=== PATIENT | female | born 1985 | race Caucasian/White ===

== ENCOUNTER → 2019-11-09 | Outpatient (REF) | payer BC ==
[2019-11-09 18:26] LABS: MALB URINE SIEMENS 55.7 MG/L
[2019-11-09 19:09] LABS: BASO % 0.5 % (0.0-1.0); EOS # 0.1 10^3/uL (0.0-0.5); EOS % 1.2 % (0.0-3.0); HEMATOCRIT 39.8 % (36.0-47.0); HEMOGLOBIN 13.4 g/dl (12.0-15.5); LYMPH # 2.6 10^3/uL (1.5-5.0); LYMPH % 30.4 % (24.0-44.0); MEAN CORPUSCULAR HEMOGLOBIN 29.7 pg (27.0-33.0); MEAN CORPUSCULAR HGB CONC 33.7 g/dl (32.0-36.5); MEAN CORPUSCULAR VOLUME 88.2 fl (80.0-96.0); MONO # 0.6 10^3/uL (0.0-0.8); MONO % 7.3 % (0.0-5.0); NEUTROPHILS # 5.2 10^3/uL (1.5-8.5); NEUTROPHILS % 60.4 % (36.0-66.0); PLATELET COUNT, AUTOMATED 302 10^3/uL (150-450); RED BLOOD COUNT 4.51 10^6/uL (4.00-5.40); WHITE BLOOD COUNT 8.6 10^3/uL (4.0-10.0)
[2019-11-09 19:23] LABS: ALT/SGPT 24 U/L (12-78); BLOOD UREA NITROGEN 13 MG/DL (7-18); CALCIUM LEVEL 8.9 MG/DL (8.5-10.1); CARBON DIOXIDE LEVEL 29 MEQ/L (21-32); CHLORIDE LEVEL 102 MEQ/L (98-107); CHOLESTEROL LEVEL 216 MG/DL (<200); CREATININE FOR GFR 0.76 MG/DL (0.55-1.30); FREE T4 1.52 NG/DL (0.76-1.46); GLOMERULAR FILTRATION RATE > 60.0 (>60); GLUCOSE, FASTING 288 MG/DL (70-100); HDL CHOLESTEROL 36 MG/DL (>40); LDL CHOLESTEROL 150 MG/DL (<100); NON-HDL-C 180 MG/DL; POTASSIUM SERUM 4.1 MEQ/L (3.5-5.1); SODIUM LEVEL 137 MEQ/L (136-145); TOTAL PROTEIN 8.5 GM/DL (6.4-8.2); TRIGLYCERIDES LEVEL 149 MG/DL (<150)
[2019-11-09 19:24] LABS: TOTAL 25(OH) VITAMIN D 20.8 NG/ML (30.0-100.0)
[2019-11-09 19:45] LABS: HEMOGLOBIN A1c 12.4 %
== END ==
LOC: M LAB REF 13:05
PROVIDERS: ATTEND Physician Assistant
DX: Z00.00 Encounter for general adult medical examination without abnormal findings (principal); E11.9 Type 2 diabetes mellitus without complications; E66.09 Other obesity due to excess calories; J45.20 Mild intermittent asthma, uncomplicated; Z13.220 Encounter for screening for lipoid disorders; E03.2 Hypothyroidism due to medicaments and other exogenous substances; Z68.35 Body mass index [BMI] 35.0-35.9, adult

== ENCOUNTER → 2020-02-07 | Outpatient (REF) | payer BC ==
[2020-02-07 17:12] LABS: HEMATOCRIT 41.5 % (36.0-47.0); HEMOGLOBIN 13.2 g/dl (12.0-15.5); MEAN CORPUSCULAR HEMOGLOBIN 27.2 pg (27.0-33.0); MEAN CORPUSCULAR HGB CONC 31.8 g/dl (32.0-36.5); MEAN CORPUSCULAR VOLUME 85.4 fl (80.0-96.0); PLATELET COUNT, AUTOMATED 339 10^3/uL (150-450); RED BLOOD COUNT 4.86 10^6/uL (4.00-5.40); WHITE BLOOD COUNT 10.6 10^3/uL (4.0-10.0)
[2020-02-07 17:20] LABS: ALBUMIN 3.6 GM/DL (3.2-5.2); ALT/SGPT 27 U/L (12-78); BILIRUBIN,TOTAL 0.5 MG/DL (0.2-1.0); BLOOD UREA NITROGEN 14 MG/DL (7-18); CALCIUM LEVEL 8.8 MG/DL (8.5-10.1); CARBON DIOXIDE LEVEL 29 MEQ/L (21-32); CHLORIDE LEVEL 102 MEQ/L (98-107); CHOLESTEROL LEVEL 180 MG/DL (<200); CREATININE FOR GFR 0.61 MG/DL (0.55-1.30); GLOMERULAR FILTRATION RATE > 60.0 (>60); GLUCOSE, FASTING 278 MG/DL (70-100); HDL CHOLESTEROL 41 MG/DL (>40); LDL CHOLESTEROL 114 MG/DL (<100); NON-HDL-C 139 MG/DL; SODIUM LEVEL 136 MEQ/L (136-145); THYROID STIMULATING HORMONE 0.845 uIU/ML (0.358-3.740); TOTAL PROTEIN 7.7 GM/DL (6.4-8.2); TRIGLYCERIDES LEVEL 125 MG/DL (<150)
[2020-02-07 17:40] LABS: HEMOGLOBIN A1c 11.1 %
== END ==
LOC: M LAB REF 16:33
PROVIDERS: ATTEND Physician Assistant
DX: E11.65 Type 2 diabetes mellitus with hyperglycemia (principal)

== ENCOUNTER → 2020-08-01 | Outpatient (REF) | payer BC ==
[2020-08-01 17:58] LABS: HEMATOCRIT 44.6 % (36.0-47.0); HEMOGLOBIN 14.2 g/dl (12.0-15.5); MEAN CORPUSCULAR HEMOGLOBIN 26.9 pg (27.0-33.0); MEAN CORPUSCULAR HGB CONC 31.8 g/dl (32.0-36.5); MEAN CORPUSCULAR VOLUME 84.5 fl (80.0-96.0); PLATELET COUNT, AUTOMATED 369 10^3/uL (150-450); RED BLOOD COUNT 5.28 10^6/uL (4.00-5.40); WHITE BLOOD COUNT 10.9 10^3/uL (4.0-10.0)
[2020-08-01 18:26] LABS: CREATININE, URINE 96.7 MG/DL; MALB URINE SIEMENS 12.3 MG/L; MAU/CREAT RATIO 12.7 MCG/MG (0.0-30.0)
[2020-08-01 18:27] LABS: ALBUMIN 3.6 GM/DL (3.2-5.2); ALT/SGPT 32 U/L (12-78); BILIRUBIN,TOTAL 0.5 MG/DL (0.2-1.0); BLOOD UREA NITROGEN 9 MG/DL (7-18); CALCIUM LEVEL 9.4 MG/DL (8.5-10.1); CARBON DIOXIDE LEVEL 28 MEQ/L (21-32); CHLORIDE LEVEL 98 MEQ/L (98-107); CHOLESTEROL LEVEL 199 MG/DL (<200); CREATININE FOR GFR 0.55 MG/DL (0.55-1.30); GLOMERULAR FILTRATION RATE > 60.0 (>60); GLUCOSE, FASTING 317 MG/DL (70-100); HDL CHOLESTEROL 33 MG/DL (>40); LDL CHOLESTEROL 127 MG/DL (<100); NON-HDL-C 166 MG/DL; POTASSIUM SERUM 4.2 MEQ/L (3.5-5.1); SODIUM LEVEL 134 MEQ/L (136-145); THYROID STIMULATING HORMONE 0.114 uIU/ML (0.358-3.740); TOTAL PROTEIN 8.2 GM/DL (6.4-8.2); TRIGLYCERIDES LEVEL 193 MG/DL (<150)
[2020-08-01 18:58] LABS: HEMOGLOBIN A1c 12.1 %
== END ==
LOC: M LAB REF 16:20
PROVIDERS: ATTEND Physician Assistant
DX: E11.65 Type 2 diabetes mellitus with hyperglycemia (principal); E89.0 Postprocedural hypothyroidism

== ENCOUNTER → 2020-12-18 | Outpatient (CLI) | payer BC ==
--- NOTE | 2020-12-18 15:46 | REP ---
INDICATION: EPIGASTRIC PAIN COMPARISON: None. TECHNIQUE: Real time fernandez scale ultrasound examination using curved array transducer. FINDINGS: Liver and pancreas are normal in contour, size, and echogenicity without focal hepatic or pancreatic lesions identified. The gallbladder demonstrates mobile gallstones without wall thickening, or pericholecystic fluid. No biliary ductal dilatation is appreciated and the common bile duct measures 5.5 mm diameter. Right kidney is normal in reniform shape without hydronephrosis and measures 12.7 x 6.8 x 5.7 cm. No ascites in the visualized right upper quadrant. IMPRESSION: Cholelithiasis <Electronically signed by Tank Smalls > 12/18/20 [id number]
== END ==
LOC: M RAD 09:08
PROVIDERS: ATTEND Physician Assistant
DX: K81.9 Cholecystitis, unspecified (principal); R10.13 Epigastric pain

== ENCOUNTER → 2021-02-13 | Outpatient (CLI) | payer BC ==
[~2021-02-13] MED LIST: GLIP5TAB20 PO; LEXA1TAB2 PO; PROAAER10 INH; SYNT175T2 PO
[2021-02-13 12:10] LABS: HEMATOCRIT 41.3 % (36.0-47.0); HEMOGLOBIN 13.4 g/dl (12.0-15.5); MEAN CORPUSCULAR HEMOGLOBIN 27.4 pg (27.0-33.0); MEAN CORPUSCULAR HGB CONC 32.4 g/dl (32.0-36.5); MEAN CORPUSCULAR VOLUME 84.5 fl (80.0-96.0); PLATELET COUNT, AUTOMATED 384 10^3/uL (150-450); RED BLOOD COUNT 4.89 10^6/uL (4.00-5.40); WHITE BLOOD COUNT 14.4 10^3/uL (4.0-10.0)
[2021-02-13 12:39] LABS: BLOOD UREA NITROGEN 10 MG/DL (7-18); CALCIUM LEVEL 9.5 MG/DL (8.5-10.1); CARBON DIOXIDE LEVEL 29 MEQ/L (21-32); CHLORIDE LEVEL 101 MEQ/L (98-107); CREATININE FOR GFR 0.56 MG/DL (0.55-1.30); GLOMERULAR FILTRATION RATE > 60.0 (>60); GLUCOSE, FASTING 218 MG/DL (70-100); POTASSIUM SERUM 4.4 MEQ/L (3.5-5.1); SODIUM LEVEL 136 MEQ/L (136-145)
== END ==
LOC: M WUC 09:27
PROVIDERS: ATTEND Physician Assistant
DX: E11.65 Type 2 diabetes mellitus with hyperglycemia (principal); E89.0 Postprocedural hypothyroidism

== ENCOUNTER → 2021-02-21 | Outpatient (CLI) | payer BC | LOC: M LABSMTC 09:12 | PROVIDERS: ATTEND Anesthesiology | DX: Z01.812 Encounter for preprocedural laboratory examination (principal); Z20.822 Contact with and (suspected) exposure to COVID-19 ==

== ENCOUNTER 2021-02-26 06:15 | Day surgery (SDC) | payer BC ==
[~2021-02-26] VITALS: Ht 165.1 cm; Wt 95.7 kg
[~2021-02-26 06:15] MED LIST changes: +LR 1,000 ML IV ONE
[2021-02-26] MEDS ORDERED: BUPIVACAINE HCL 0.25% 30ML VIAL As Ordered ONE (07:11)
[2021-02-26] MEDS ORDERED: HumaLOG INSULIN (NovoLOG) PER UNIT SC ONE ×2 (07:25→09:35)
[2021-02-26] MEDS ORDERED: fentaNYL 100 MCG/2 ML INJECTION (J3010) As Ordered ONE (07:54)
[2021-02-26] MEDS ORDERED: MIDAZOLAM INJ 2MG/2ML VIAL (J2250 PER 1MG) As Ordered ONE (07:54)
[2021-02-26] MEDS ORDERED: LIDOCAINE 2% 100MG/5ML SDV (FOR ANES.) As Ordered ONE (07:54)
[2021-02-26] MEDS ORDERED: ROCURONIUM BROMIDE 50 MG/5 ML VIAL As Ordered ONE ×2 (07:54→08:20)
[2021-02-26] MEDS ORDERED: propofoL 200 MG/20 ML VIAL As Ordered ONE (07:54)
[2021-02-26] MEDS ORDERED: ONDANSETRON 4MG/2ML VIAL As Ordered ONE (07:54)
[2021-02-26] MEDS ORDERED: dexameTHASONE 4 MG/ML 1ML VIAL (J1100 PER 1MG) As Ordered ONE (07:54)
[2021-02-26] MEDS ORDERED: ACETAMINOPHEN 1000MG 100ML IV BTL (OFIRMEV) (J0131 PER 10MG) As Ordered ONE (07:55)
[2021-02-26] MEDS ORDERED: HYDROmorphone HCL 2 MG/ML 1ML VIAL As Ordered ONE (07:55)
[2021-02-26] MEDS ORDERED: SUGAMMADEX SODIUM 500 MG/5 ML VIAL (BRIDION) As Ordered ONE (08:21)
[2021-02-26] MEDS ORDERED: fentaNYL 100 MCG/2 ML INJECTION (J3010) IV PRN (09:35)
[2021-02-26] MEDS ORDERED: ONDANSETRON 4MG/2ML VIAL IV PRN (09:35)
[2021-02-26] MEDS ORDERED: LR 1,000 ML IV SCH (09:35)
[2021-02-26] MEDS ORDERED: oxyCODONE 5MG TAB PO PRN (09:35)
[2021-02-26] MEDS ORDERED: IBUPROFEN 600MG TAB PO PRN (09:40)
[2021-02-26] MEDS ORDERED: NORCO, ANEXSIA 5/325MG TABLET (HYDROcodone/ACETAMINOPHEN) PO PRN (09:40)
[2021-02-26] MEDS ORDERED: ACETAMINOPHEN TAB 650MG DOSE (2X325MG) PO PRN (09:40)
[2021-02-26] MEDS ORDERED: KETOROLAC 30 MG/ML 1ML VIAL As Ordered ONE (09:56)
[2021-02-26] MEDS ORDERED: KETOROLAC 30 MG/ML 1ML VIAL IV ONE (10:00)
[2021-02-26] MEDS ORDERED: HYDR-3715 PO (10:13)
--- NOTE | 2021-02-26 10:49 | RO ---
OPERATIVE NOTE DATE OF OPERATION: 02/26/2021 PREOPERATIVE DIAGNOSIS: Symptomatic gallstones. POSTOPERATIVE DIAGNOSIS: Symptomatic gallstones. PROCEDURE: Robotic-assisted laparoscopic cholecystectomy. SURGEON: ADRIANA NARAYANAN MD DISTRICT ADMINISTRATOR: SHERRIE FOWLER. Mariola's assistance was essential for management of the [employer] robotic equipment. She assisted with placement of the ports and insertion and change of instruments. She assisted in closure of the incisions as well. ANESTHESIA: General. INDICATIONS FOR THE PROCEDURE: The patient is a 35-year-old woman with a history of intermittent upper abdominal pain with findings of cholelithiasis. She is now for a robotic-assisted laparoscopic cholecystectomy. DESCRIPTION OF PROCEDURE: The patient was brought to the operating room and placed on the table in the supine position. She was placed under general endotracheal anesthesia. The patient's abdomen was prepped and draped in a sterile fashion. TEDs and sequentials were utilized; 0.25% Marcaine was infiltrated at the trocar sites as needed. A short transverse incision was made in the left upper quadrant and a Veress needle was inserted. The abdomen was inflated with CO2 gas without difficulty. An 8 mm robotic port was placed over the scope and through the abdominal wall without difficulty. Initial examination showed a normal appearing liver. The gallbladder was hidden beneath the omentum. The patient was tilted to a slight reverse Trendelenburg position and rolled slightly to the left. Three additional 8 mm ports were placed just above the umbilicus, in the medial right lower quadrant, and in the lateral right lower quadrant. The patient cart with the [employer] robot was then brought into position. The endoscope arm was docked to the supraumbilical port. The endoscope was inserted and targeting took place on the subhepatic space. A hook cautery was placed in the left upper quadrant and a grasping retractor and fenestrated bipolar were placed in the right lower quadrant ports. I then moved to the control console to proceed with the operation. The edge of the liver was elevated and the gallbladder was identified. The gallbladder was somewhat thick-walled but not acutely inflamed and not tensely distended. The gallbladder was grasped and elevated. A few adhesions of the omentum toward the neck of the gallbladder were lysed with the cautery. The pericholecystic tissues at the gallbladder neck were then opened carefully using the hook cautery. The cholecystic artery and cystic ducts were then both clearly identified and dissected free. Both structures were then doubly clipped with hemoclips and divided. The gallbladder was then dissected free from the gallbladder bed using the cauterizing scissors. A small artery in the gallbladder bed was identified and this was thoroughly cauterized. The gallbladder was not perforated in the course of dissection. The gallbladder was placed in an Endopouch. Final inspection in the subhepatic space showed no evidence of bleeding or bile leak. The robotic instruments were then removed and the patient cart was undocked and withdrawn. I returned to the patient's side. The specimen pouch was retrieved through the supraumbilical site which required extending the skin and fascial incisions slightly. There was one somewhat lobulated, approximately 1.5 cm stone palpable in the gallbladder. The specimen was sent for permanent pathology. The fascia was closed with a running suture of 2-0 PDS. The skin incisions were all closed with buried sutures of 4-0 Vicryl and Steri-Strips. Light dressings were applied. The patient tolerated the procedure well without apparent complication. She was awakened in the operating room, extubated and moved to the recovery room in table condition.
[2021-02-26 11:15] VITALS: BP 126/65
== END 2021-02-26 11:15 | disposition home or self-care (01) ==
LOC: M SDC 06:15
PROVIDERS: ATTEND Surgery
DX: K80.10 Calculus of gallbladder with chronic cholecystitis without obstruction (principal); E11.9 Type 2 diabetes mellitus without complications; E03.9 Hypothyroidism, unspecified; F41.9 Anxiety disorder, unspecified; J45.909 Unspecified asthma, uncomplicated; Z79.51 Long term (current) use of inhaled steroids; Z79.84 Long term (current) use of oral hypoglycemic drugs; Z79.899 Other long term (current) drug therapy; Z87.891 Personal history of nicotine dependence
CPT/HCPCS: 47562; 81025; 88304; J0131; J1100; J1170; J1885; J2250; J2405; J3010; S2900